=== PATIENT | female | born 1955 | race Caucasian/White ===

== ENCOUNTER 2022-06-20 08:36 | Inpatient (IN) ==
--- NOTE | 2022-05-28 14:57 | PAT Medication Instructions ---
Medication Instructions Date of Service May 28, 2022 Home Medications Medication Instructions Recorded ondansetron HCl 4 mg tablet 4 mg PO Q8H PRN nausea and 09/02/21 vomiting #15 tabs Medication List: acetaminophen 500 mg tablet 500 mg PO DIRECTED PRN Fever Or Pain albuterol sulfate 90 mcg/actuation breath activated powder inhaler (ProAir RespiClick) 2 puff inhalation QID PRN Wheezing aspirin 81 mg tablet,delayed release 81 mg PO QAM cetirizine 10 mg tablet (Zyrtec) 10 mg PO QAM esomeprazole magnesium 40 mg capsule,delayed release (Nexium) 40 mg PO QAM ibuprofen 200 mg tablet (Advil) 200 mg PO DIRECTED PRN Pain montelukast 10 mg tablet 10 mg PO QAM multivitamin 1 tab PO QAM rosuvastatin 20 mg tablet (Crestor) 20 mg PO QPM valsartan 80 mg tablet 80 mg PO QAM ondansetron HCl 4 mg tablet 4 mg PO Q8H PRN nausea and vomiting budesonide 160 mcg-glycopyr 9 mcg-formot 4.8 mcg/actuation HFA inhaler (Breztri Aerosphere) 2 inh inhalation BID gabapentin 300 mg capsule 300 mg PO BID ropinirole 0.5 mg tablet 0.5 mg PO QPM venlafaxine 150 mg tablet,extended release 24 hr 150 mg PO PM ASK your surgeon for instructions ibuprofen 200 mg tablet (Advil) 200 mg PO DIRECTED PRN Pain ASK your prescriber and surgeon aspirin 81 mg tablet,delayed release 81 mg PO QAM DO NOT take the morning of surgery multivitamin 1 tab PO QAM valsartan 80 mg tablet 80 mg PO QAM cetirizine 10 mg tablet (Zyrtec) 10 mg PO QAM Take morning of surgery With a small sip of water, OTHERWISE NOTHING TO EAT OR DRINK AFTER MIDNIGHT: acetaminophen 500 mg tablet 500 mg PO DIRECTED PRN Fever Or Pain (if needed) albuterol sulfate 90 mcg/actuation breath activated powder inhaler (ProAir RespiClick) 2 puff inhalation QID PRN Wheezing (use if needed; BRING TO HOSPITAL) esomeprazole magnesium 40 mg capsule,delayed release (Nexium) 40 mg PO QAM montelukast 10 mg tablet 10 mg PO QAM ondansetron HCl 4 mg tablet 4 mg PO Q8H PRN nausea and vomiting (if needed) budesonide 160 mcg-glycopyr 9 mcg-formot 4.8 mcg/actuation HFA inhaler (Breztri Aerosphere) 2 inh inhalation BID gabapentin 300 mg capsule 300 mg PO BID Take evening before surgery acetaminophen 500 mg tablet 500 mg PO DIRECTED PRN Fever Or Pain (if needed) albuterol sulfate 90 mcg/actuation breath activated powder inhaler (ProAir RespiClick) 2 puff inhalation QID PRN Wheezing rosuvastatin 20 mg tablet (Crestor) 20 mg PO QPM ropinirole 0.5 mg tablet 0.5 mg PO QPM venlafaxine 150 mg tablet,extended release 24 hr 150 mg PO PM ondansetron HCl 4 mg tablet 4 mg PO Q8H PRN nausea and vomiting (if needed) budesonide 160 mcg-glycopyr 9 mcg-formot 4.8 mcg/actuation HFA inhaler (Breztri Aerosphere) 2 inh inhalation BID gabapentin 300 mg capsule 300 mg PO BID Other Notes If you have any questions please call us at [phone] or [phone] or [phone] or [phone]
--- NOTE | 2022-06-06 11:18 | Anesthesiology Consultation ---
Date of Service June 06, 2022 Assessment & Plan (1) Encounter for pre-operative examination: Chart Review Chart Review: Acceptable Risk for Surgery (pending PCP clearance 06/07/22) and Patient seen in Pre Admission Testing -Awaiting PCP clearance 06/07/22 Per PAT appt on 06/06/22, patient denies any recent travel or large group activities. Pt is vaccinated for Covid. Will leave to surgeon's discretion if preop Covid testing needed. Educated on importance of using Covid precautions one week prior to surgery Teaching & Discussion Pre-Anesthesia Teaching/Discussion Notes: Instructed NPO after midnight before surgery,except medications with 15 cc of water. Medication instructions provided according to the PAT guidelines. History Surgery Operation Date: 06/20/22 07:45 Proposed Procedures p T11-L2 Decompression and Fusion, Spinal Cord Monitoring - Maged Gamino DO Height/Weight Height: 5 ft 3.5 in Weight: 97.7 kg Allergies Allergy/AdvReac Type Severity Reaction Status Date / Time tramadol Allergy Intermediate Itchiness Verified 05/28/22 08:32 Cephalosporins AdvReac Mild GI UPSET Verified 05/28/22 08:32 clavulanic acid AdvReac Mild UPSET Verified 05/28/22 08:32 STOMACH/NAUSEA Quinolones AdvReac Mild NAUSEA/UPSET Verified 05/28/22 08:32 STOMACH tetracycline AdvReac Mild Gastrointestinal Verified 05/28/22 08:32 Upset Medications Home Medications Medication Instructions Recorded Confirmed Last Taken acetaminophen 500 mg tablet 500 mg PO DIRECTED PRN Fever Or 12/13/17 05/28/22 Unknown Pain albuterol sulfate 90 mcg/actuation 2 puff inhalation QID PRN Wheezing 12/13/17 05/28/22 Unknown breath activated powder inhaler (ProAir RespiClick) aspirin 81 mg tablet,delayed 81 mg PO QAM 12/13/17 05/28/22 Unknown release cetirizine 10 mg tablet (Zyrtec) 10 mg PO QAM 12/13/17 05/28/22 Unknown esomeprazole magnesium 40 mg 40 mg PO QAM 12/13/17 05/28/22 Unknown capsule,delayed release (Nexium) ibuprofen 200 mg tablet (Advil) 200 mg PO DIRECTED PRN Pain 12/13/17 05/28/22 Unknown montelukast 10 mg tablet 10 mg PO QAM 12/13/17 05/28/22 Unknown multivitamin 1 tab PO QAM 12/13/17 05/28/22 Unknown rosuvastatin 20 mg tablet (Crestor) 20 mg PO QPM 12/13/17 05/28/22 Unknown valsartan 80 mg tablet 80 mg PO QAM 12/13/17 05/28/22 Unknown ondansetron HCl 4 mg tablet 4 mg PO Q8H PRN nausea and 09/02/21 05/28/22 Unknown vomiting #15 tabs budesonide 160 mcg-glycopyr 9 2 inh inhalation BID 05/28/22 05/28/22 Unknown mcg-formot 4.8 mcg/actuation HFA inhaler (Breztri Aerosphere) gabapentin 300 mg capsule 300 mg PO BID 05/28/22 05/28/22 Unknown ropinirole 0.5 mg tablet 0.5 mg PO QPM 05/28/22 05/28/22 Unknown venlafaxine 150 mg tablet,extended 150 mg PO PM 05/28/22 05/28/22 Unknown release 24 hr Past Medical History Medical History Anxiety and depression Asthma Breathing stable Chronic back pain GERD (gastroesophageal reflux disease) Well controlled and stable Hiatal hernia History of COVID-19 05/2019- mild symptoms, resolved History of kidney stones Last episode Jan 2022 Hyperlipidemia Hypertension Restless leg syndrome Sleep apnea CPAP Vertigo Intermittent Exercise / Class Metabolic Activity II 4-5 Yardwork/Stairs/Walk up hill (one flight of stairs- no chest pain or SOB) Past Family History Family History Other No family history of adverse response to anesthesia Past Surgical History Surgical History History of bilateral tubal ligation History of cardiac cath x2, 5+ years ago - no stents History of carpal tunnel surgery of right wrist History of colonoscopy History of esophagogastroduodenoscopy (EGD) History of lithotripsy History of lumbar laminectomy History of lumbar spinal fusion x2 History of sinus surgery History of tooth extraction History of total right knee replacement (TKR) S/P cystoscopy with ureteral stent placement x2 Past Anesthesia History No Hx of Anesthesia Complications and No Family Hx of Anesthesia Complications History of PONV No Hx of PONV and No Hx of Motion Sickness Social History Smoking Status: Former smoker Do You Dip or Chew Tobacco: No Smoking End Date: quit 1994 Hx Alcohol Use: Yes alcohol intake frequency: holidays/special occasions only Hx Substance Use: No substance use type: does not use Review of Systems Patient denies chest pain, shortness of breath at rest, cough, wheezing, palpitations. No hx of seizures, stroke, [place]. No hx of blood clots or blood transfusions Physical Exam Vital Signs VITALS BP 158/92 P 86 TEMP 98.3 SP02 97% RESP 16 Constitutional no acute distress ENMT Mouth: no TMJ clicking Thyromental Distance: > or= 3.5 Finger Breadths (3.5) Mallampati Class: II Missing molars and side teeth Cap to top right front tooth Neck neck extension not limited Respiratory normal respiratory effort; no respiratory distress Auscultation: lungs clear to auscultation bilaterally; no wheezes Cardiovascular Rate/Rhythm: regular rate and regular rhythm Heart Sounds: no murmur Vessels: no carotid bruit Musculoskeletal Spine: no pain with cervical ROM Extremities: extremities normal to inspection Psychiatric Orientation: alert Lab Results Anesthesia Preop Results Results Anesthesia Widget: WBC 5.51 K/ul (4.8-10.8) 06/06/22 Hgb 12.7 g/dl (12.0-16.0) 06/06/22 Hct 39.8 % (37.0-47.0) 06/06/22 Plt 183 K/uL (130-400) 06/06/22 Na 142 mmol/L (136-145) 06/06/22 K 4.2 mmol/L (3.5-5.1) 06/06/22 Cl 106 mmol/L (98-107) 06/06/22 CO2 30 mmol/L (21-32) 06/06/22 BUN 19 mg/dl (6-23) 06/06/22 Creat 0.65 mg/dl (0.6-1.2) 06/06/22 Glucose Level 97 mg/dl (70-99(Fasting)) 06/06/22 PT 11.6 Seconds (9.0-12.0) 06/06/22 PTT 26.4 Seconds (21.0-31.0) 06/06/22 INR 1.1 (0.9-1.1) 06/06/22 Urine Color Yellow 06/06/22 Urine Appearance Clear (Clear) 06/06/22 Urine pH 6.5 (4.5-7.5) 06/06/22 Urine Specific Robbins 1.020 (1.000-1.030) 06/06/22 Urine Protein Negative (Negative) 06/06/22 Urine Glucose (UA) Negative (Negative) 06/06/22 Urine Ketones Negative (Negative) 06/06/22 Urine Blood Trace (Negative) H 06/06/22 Urine Nitrite Negative (Negative) 06/06/22 Urine Bilirubin Negative (Negative) 06/06/22 Urine Urobilinogen Negative (Negative) 06/06/22 Urine Leukocyte Esterase Trace (Negative) H 06/06/22 Urine WBC (Auto) >30 /hpf (0-5) H 06/06/22 Urine RBC (Auto) 5-10 /hpf (0-4) H 06/06/22 Urine Hyaline Casts (Auto) 1-5 /lpf (0-5) 06/06/22 Urine Epithelial Cells (Auto) 10-20 /lpf (0-5) H 06/06/22 Urine Bacteria (Auto) 3+ (Negative) H 06/06/22 Blood Type A Positive 06/06/22 Antibody Screen NEGATIVE 06/06/22 Testing Laboratory Results L/m with surgeon's office informed of abnormal UA - will leave to surgeon's discretion on how to proceed Electrocardiogram Date: 06/06/22 NSR with sinus arrhythmia at 87bpm Normal EKG per cardio Chest X-Ray Date: 06/06/22 Findings: + NAD Stress Test Date: 11/12/18 No evidence of myocardial ischemia or infarction. EF 63% LV wall motion normal COVID-19 Risk Screen Screening Information COVID-19 Screen Date: 06/06/22 Exposure 21 Days Family/Household +COVID Last 21 Days: No Exposure 10 Days Any COVID Exposure Last 10 Days: No Symptoms Last 10 Days Experienced COVID Sx Last 10 Days: No + COVID 0-90 Days COVID + in Last 0-90 Days: No Risk Plan COVID Risk Plan: No Risk Identified Patient Education COVID Preop Screening Education Complete: Yes
[~2022-06-20 08:36] MED LIST: ACETAMINOPHEN 500 MG TAB PO SCH; CLINDAMYCIN/D5W 900 MG/50 ML BAG IV SCH; CeleBREX 200 MG CAP PO SCH; LR 15ML/HR IV SCH
[2022-06-20] MEDS ORDERED: MIDAZOLAM HCL 1 MG/ML 2ML VIAL ONE (09:05)
[2022-06-20] MEDS ORDERED: fentaNYL citrate PF 100 MCG/2 ML VIAL ONE ×2 (09:05→11:58)
[2022-06-20] MEDS ORDERED: LIDOCAINE 2% MPF LOCAL 5 ML VIAL ONE (09:05)
[2022-06-20] MEDS ORDERED: PROPOFOL IV EMULSION 10 MG/ML 20 ML VIAL IV ONE ×2 (09:05→11:57)
[2022-06-20] MEDS ORDERED: DEXAMETHASONE SOD INJ 4 MG/ML VIAL ONE (09:05)
[2022-06-20] MEDS ORDERED: ROCURONIUM BROMIDE 10 MG/ML 5 ML VIAL IV ONE (09:05)
--- NOTE | 2022-06-20 09:41 | History & Physical Bridge Note ---
Date of Service June 20, 2022 History & Physical Bridge Note I have examined the patient, reviewed the History & Physical and in the interval since the performance of the History & Physical I have noted the following changes of clinical significance: no changes noted
--- NOTE | 2022-06-20 09:42 | History & Physical Report ---
Date of Service June 20, 2022 Assessment & Plan (1) Neurogenic claudication due to lumbar spinal stenosis: Plan: T12-L2 decompression and fusion History of Present Illness Chief Complaint: Back and bilateral leg pain Primary Care Provider: Андрей Donnelly This is a 59-year-old female who presents with chronic persistent back and bilateral leg pain after failing course of nonoperative care she is here for surgical invention. Allergies Allergy/AdvReac Type Severity Reaction Status Date / Time tramadol Allergy Intermediate Itchiness Verified 06/20/22 08:58 Cephalosporins AdvReac Mild GI UPSET Verified 06/20/22 08:58 clavulanic acid AdvReac Mild UPSET Verified 06/20/22 08:58 STOMACH/NAUSEA Quinolones AdvReac Mild NAUSEA/UPSET Verified 06/20/22 08:58 STOMACH tetracycline AdvReac Mild Gastrointestinal Verified 06/20/22 08:58 Upset Home Medications Medication Instructions Recorded Confirmed Type acetaminophen 500 mg tablet 500 mg PO DIRECTED PRN Fever Or 12/13/17 06/20/22 History Pain albuterol sulfate 90 mcg/actuation 2 puff inhalation QID PRN Wheezing 12/13/17 06/20/22 History breath activated powder inhaler (ProAir RespiClick) aspirin 81 mg tablet,delayed 81 mg PO QAM 12/13/17 06/20/22 History release cetirizine 10 mg tablet (Zyrtec) 10 mg PO QAM 12/13/17 06/20/22 History esomeprazole magnesium 40 mg 40 mg PO QAM 12/13/17 06/20/22 History capsule,delayed release (Nexium) ibuprofen 200 mg tablet (Advil) 200 mg PO DIRECTED PRN Pain 12/13/17 06/20/22 History montelukast 10 mg tablet 10 mg PO QAM 12/13/17 06/20/22 History multivitamin 1 tab PO QAM 12/13/17 06/20/22 History rosuvastatin 20 mg tablet (Crestor) 20 mg PO QPM 12/13/17 06/20/22 History valsartan 80 mg tablet 80 mg PO QAM 12/13/17 06/20/22 History ondansetron HCl 4 mg tablet 4 mg PO Q8H PRN nausea and 09/02/21 06/20/22 Rx vomiting #15 tabs budesonide 160 mcg-glycopyr 9 2 inh inhalation BID 05/28/22 06/20/22 History mcg-formot 4.8 mcg/actuation HFA inhaler (Breztri Aerosphere) gabapentin 300 mg capsule 300 mg PO BID 05/28/22 06/20/22 History ropinirole 0.5 mg tablet 0.5 mg PO QPM 05/28/22 06/20/22 History venlafaxine 150 mg tablet,extended 150 mg PO PM 05/28/22 06/20/22 History release 24 hr Past Med/Surg History Medical History (Updated 06/20/22 @ 09:42 by Maged Gamino, ) Anxiety and depression Asthma Breathing stable Ty esophagus Per PCP records Chronic back pain COPD (chronic obstructive pulmonary disease) Per PCP records GERD (gastroesophageal reflux disease) Well controlled and stable Hiatal hernia History of COVID-19 05/2019- mild symptoms, resolved History of kidney stones Last episode Jan 2022 Hyperlipidemia Hypertension Restless leg syndrome Sleep apnea CPAP Vertigo Intermittent Surgical History History of bilateral tubal ligation History of cardiac cath x2, 5+ years ago - no stents History of carpal tunnel surgery of right wrist History of colonoscopy History of esophagogastroduodenoscopy (EGD) History of lithotripsy History of lumbar laminectomy History of lumbar spinal fusion x2 History of sinus surgery History of tooth extraction History of total right knee replacement (TKR) S/P cystoscopy with ureteral stent placement x2 Family History Other No family history of adverse response to anesthesia Social History Smoking Status: Former smoker Tobacco Type: Cigarettes Smoking End Date: quit 1994; Second Hand Exposure: No; Do You Dip or Chew Tobacco: No; Tobacco Cessation Education Requested by Patient: No Hx Alcohol Use: Yes Hx Substance Use: No Preferred Language: Congolese Communication Ability: Effective Visual Impairment: No Limitations Hearing Ability: Normal Media Consultant Required: No Beliefs That Will Affect Care: None Current Living Situation: Spouse and Parent Current Living Situation Comment: Lives with and mother Other Information That Helps Us Care for You: No Feels Safe at Home: Yes Safety Concerns: Feels Safe At This Time Assistive Devices: CPAP, Denture - Upper, Denture - Lower and Glasses Assistive Devices Comment: partial upper/lower denture Physical Exam Physical Exam: Patient is alert and oriented Heart regular rhythm Lungs clear Results & Data Results & Data Vital Signs (Past 12 Hours) Vital Signs Temp Pulse Resp BP Pulse Ox O2 Del Method 06/20/22 09:16 88 18 177/102 H 95 Room Air 06/20/22 09:13 36.9 C 89 20 143/109 H 96 Room Air
[2022-06-20] MEDS ORDERED: BUPIVACAINE/EPINEPHRINE 0.25% 1:200,000 30 ML VIAL ONE (09:48)
[2022-06-20] MEDS ORDERED: ceFAZolin 330 MG/ML 1 GM VIAL ONE (09:48)
[2022-06-20] MEDS ORDERED: ONDANSETRON INJ 2 MG/ML 2 ML VIAL ONE (12:12)
[2022-06-20] MEDS ORDERED: SUGAMMADEX SODIUM 200 MG/2 ML VIAL IV ONE (12:14)
--- NOTE | 2022-06-20 12:19 | Operative Report ---
Post Operative Report Pre & Post Diagnosis Operation Date: 06/20/22 10:05 Pre-Op Diagnosis: Lumbar spinal stenosis with neurogenic claudication Morbid obesity Post-Op Diagnosis: Same I identified the patient and participated in the time-out.: Yes Procedure Operation Date: 06/20/22 10:05 Actual Procedures #1 lumbar decompression bilateral medial facetectomies and foraminotomies T12-L1 L1-L2. #2 posterior spinal fusion T11-L2. #3 placement posterior instrumentation T11-L1 with connectors to the L2-L3 olive. #4 interbody fusion L1-L2. #5 placement of Spira 8 x 22 mm at L1-L2. #6 placement locally harvested morselized autograft in the posterior gutters. #7 placement of I factor in the interbody space and infuse collagen sponge, and master graft in the posterior lateral gutters. Surgeon Maged Gamino, DO [employer] Shabnam Anders Estimated Blood Loss 350 Findings See Below The patient is 5 foot 3 weighing over 97 kg with a BMI in excess of 37. Patient's body habitus did contribute to significant technical difficulty required deeper retractors and longer instruments in order to perform her procedure. This at least 50% increased operative time. Specimens None Indications This is a 59-year-old female who presents above-mentioned diagnosis after failing course of nonoperative care is here for surgical invention. Description of Procedure Patient was met with identified informed consent obtained. Patient was then taken to the operative suite underwent a patient placed in a prone position on the [place] table top Dylon frame. All bony prominences well-padded eyes inspected to ensure no external pressure placed upon the. This point the lumbar spine was prepped and draped in normal sterile fashion. Sharp dissection with the assistance of Bovie cautery was then performed down to and exposing the lamina and transverse processes of T11-T12 L1 and the instrumentation between L2 and L3. Then performed a complete laminectomy of L1 partial laminectomy of T12 including bilateral medial facetectomies and foraminotomies addressing severe spinal stenosis. Pedicle screws were then placed in T11-T12 and L1 and by way of transforaminal approach on the left complete discectomy of L1-L2 was performed endplates curetted to subcortical bleeding bone and 8 x 22 mm Spira cage filled I factor tapped in position. Proper size rods were then contoured and locked in place bilaterally with the use of connectors between L2 and L3. Transverse processes of T11 T12-L1 and L2 were then burred to subcortical bleeding bone. Infuse collagen sponge from mass graft locally harvested morselized autograft was then placed in the posterior gutters. 15 round LUIS drain inserted. The incision was then closed with 1 Vicryl the fascia 2-0 Vicryl subcutaneously and 4 Monocryl for final skin closure. Steri-Strips sterile dressing placed. Patient awakened and taken to PACU in stable condition. Please note spinal cord monitoring visualized at the procedure no changes noted. Lastly Shabnam Anders was present at the entire surgeon while the patient positioning complex portions of the surgery and final skin closure. I attest to the content of the Intraoperative Record and any orders documented therein. Any exceptions are noted below.
[2022-06-20] MEDS ORDERED: ePHEDrine sulfate 50 MG/ML AMP IV PRN (13:09)
[2022-06-20] MEDS ORDERED: LABETALOL HCL IV 5 MG/ML 20ML IV PRN (13:09)
[2022-06-20] MEDS ORDERED: ONDANSETRON INJ 2 MG/ML 2 ML VIAL IV PRN ×2 (13:09→14:14)
[2022-06-20] MEDS ORDERED: PROMETHAZINE HCL 12.5 MG in SODIUM CHLORIDE 0.9% 50 ML IV PRN ×2 (13:09→14:14)
[2022-06-20] MEDS ORDERED: ATROPINE SULFATE 0.1 MG/ML 10ML SYR IV PRN (13:09)
[2022-06-20] MEDS ORDERED: LABETALOL HCL IV 5 MG/ML 20ML IV ONE (13:13)
[2022-06-20] MEDS ORDERED: HYDROmorphone INJ 1 MG/ML SYRINGE ONE (13:13)
[2022-06-20] MEDS: HYDROmorphone INJ 2 MG/ML SYR/VIAL IV PRN ×2 (13:14→13:26)
--- NOTE | 2022-06-20 13:39 | Fluoroscopy Report ---
FL lumbar spine 2-3V CLINICAL HISTORY: T11-L2 DECOMP/FUSION COMPARISON STUDY: CT abdomen and pelvis 09/01/2021 FLUOROSCOPY TIME: 29 seconds FLUOROSCOPY IMAGES: 2 EXPOSURE DOSE: 25.20 mGy FINDINGS: Thoracolumbar posterior interbody olive and screw fusion with discectomy changes. Exact numbe ring of the fused segments is not definitive based on magnification. The visualized hardware appears intact. No unexpected opaque foreign bodies are identified. Images were submitted following completio n of the surgery. IMPRESSION: Fluoroscopic assistance as above. ACT 112: Negative or not required by law. Electronically signed by: Pierre Peoples M.D. 06/20/2022 1:38 PM
[2022-06-20] MEDS ORDERED: ACETAMINOPHEN 1,000 MG/100 ML VIAL IV PRN (14:14)
[2022-06-20] MEDS ORDERED: traMADol HCL 50 MG TABLET PO PRN (14:14)
[2022-06-20] MEDS ORDERED: DO NOT ADMINISTER PNEUMOCOCCAL VACCINE PRN (14:14)
[2022-06-20] MEDS ORDERED: MAGNESIUM HYDROXIDE SUSP 30 ML UDC PO PRN (14:14)
[2022-06-20] MEDS ORDERED: ACETAMINOPHEN 500 MG TAB PO PRN (14:14)
[2022-06-20] MEDS ORDERED: hydrOXYzine HCl 25 MG TAB PO PRN (14:14)
[2022-06-20] MEDS ORDERED: LORazepam 0.5 MG TAB PO PRN (14:14)
[2022-06-20] MEDS ORDERED: ONDANSETRON 4 MG OD TAB PO PRN (14:14)
[2022-06-20] MEDS ORDERED: METOCLOPRAMIDE HCL INJ 5 MG/ML 2 ML VIAL IV PRN (14:14)
[2022-06-20] MEDS ORDERED: LORazepam 2 MG/1 ML VIAL IV PRN (14:14)
[2022-06-20] MEDS ORDERED: ALUMINUM/MAGNESIUM SUSP 30 ML UDC PO PRN (14:14)
[2022-06-20] MEDS ORDERED: HYDROmorphone INJ 0.5 MG/0.5 ML SYR IV PRN (14:14)
[2022-06-20] MEDS ORDERED: bisacodyL 10 MG SUPP PR PRN (14:14)
[2022-06-20] MEDS ORDERED: SOD PHOSPHATE/SOD BIPHOSPHATE ENEMA 132 ML BTL PR PRN (14:14)
[2022-06-20] MEDS ORDERED: FAMOTIDINE 20 MG TAB PO PRN (14:14)
[2022-06-20] MEDS ORDERED: diphenhydrAMINE Capsule 25 MG CAP PO PRN (14:14)
[2022-06-20] MEDS ORDERED: NALOXONE HCL 0.4 MG/1 ML VIAL/CARP IV PRN (14:14)
[2022-06-20] MEDS ORDERED: DO NOT ADMINISTER FLU VACCINE PRN (14:14)
--- NOTE | 2022-06-20 14:28 | Anesthesiology Progress Note ---
Date of Service June 20, 2022 Anesthesia Post Procedure Vital Signs Vital Signs: Temp Pulse Pulse Resp BP Pulse Ox O2 Del Method 06/20/22 14:11 36.5 C 17 144/88 H 95 Room Air 06/20/22 13:50 78 15 141/83 H 97 Nasal Cannula 06/20/22 13:40 36.5 C 79 15 149/80 H 99 Nasal Cannula 06/20/22 13:30 76 19 129/92 100 Nasal Cannula 06/20/22 13:20 75 13 135/87 96 Nasal Cannula 06/20/22 13:10 85 14 159/105 H 100 Nasal Cannula 06/20/22 13:00 86 15 147/105 H 99 Nasal Cannula 06/20/22 12:50 94 H 20 152/102 H 98 Nasal Cannula 06/20/22 12:41 36.2 C L 87 12 153/102 H 96 Nasal Cannula 06/20/22 09:16 88 18 177/102 H 95 Room Air 06/20/22 09:13 36.9 C 89 20 143/109 H 96 Room Air O2 Flow Rate 06/20/22 14:11 06/20/22 13:50 2 06/20/22 13:40 2 06/20/22 13:30 2 06/20/22 13:20 3 06/20/22 13:10 3 06/20/22 13:00 3 06/20/22 12:50 3 06/20/22 12:41 3 06/20/22 09:16 06/20/22 09:13 Pain Intensity Back: Pain Intensity: 4 Transfer of Care Handoff Completed per policy Notes Mental Status: alert / awake / arousable and participated in evaluation Nausea / Vomiting: adequately controlled Pain: adequately controlled Airway Patency, RR, SpO2: stable & adequate BP & HR: stable & adequate Hydration State: stable & adequate Anesthetic Complications: no major complications apparent and Pt Satisfied with anesthetic care
[2022-06-20] MEDS: SODIUM CHLORIDE 0.9% 1000ML 1,000 ML IV SCH ×2 (14:52→21:11)
[2022-06-20] MEDS: oxyCODONE HCL IR 5 MG TAB (IMMEDIATE RELEASE) PO PRN (14:59)
[2022-06-20] MEDS: CLINDAMYCIN/D5W 600 MG/50 ML BAG IV SCH (18:00)
--- NOTE | 2022-06-20 19:23 | Consultation ---
Date of Consultation June 20, 2022 Assessment & Plan (1) S/P spinal surgery: (2) Neurogenic claudication due to lumbar spinal stenosis: Post op day# 0 S/P T11-L2 decompression and fusion by Dr Hanny MELO #350 mL pain management per ortho wound management per ortho PT/OT as appropriate DVT prophylaxis per ortho incentive spirometry monitor H&H for acute blood loss anemia; preop Hgb: 12.7 on 06/06/2022 per chart review (3) Asthma: No signs exacerbation Continue home inhalers, Singulair, albuterol as needed (4) Hypertension: Continue valsartan (5) Hyperlipidemia: Continue rosuvastatin (6) GERD (gastroesophageal reflux disease): Patient did not take PPI today and reports some indigestion. Will dose PPI tonight as well as Pepcid Continue PPI (7) Sleep apnea: CPAP at bedtime (8) Restless leg syndrome: Continue ropinirole (9) Anxiety and depression: Continue venlafaxine DVT Prophylaxis SCDs per ortho Disposition per primary service Follows with Dr Elizabeth Donnelly [facility] for routine care Pt was seen and care coordinated with Dr Duarte. See addendum I spent a total of 45 minutes reviewing notes, outpatient records, labs, medication, coordinating, documenting and providing care for this patient excluding time spent in the performance of separately billed services. Thank you for this consultation. We will follow the patient with you during their hospital stay. You [facility]10 via [facility] Supervising Physician Co-Signing Physician Notes Patient seen and examined. Chart reviewed. Case discussed with LITA. Agree with above History of Present Illness Requesting Physician: Dr. Gamino Reason for Consultation: Postop medical management Attending Physician: Maged Gamino, History of Present Illness Patient is 67-year-old female with PMH asthma, COPD, HTN, dyslipidemia, anxiety, depression, RLS, GERD seen in medical consultation s/p T12-L2 decompression and fusion today by Dr. Gamino. Postop patient reports some back pain. Preop she reports had left leg pain. Patient denies any current left leg pain. Reports chronic paresthesias bilateral feet. Patient states did not have any of her medications today including her Nexium. Currently she reports some heartburn and nausea. Denies any vomiting. Denies fever/chills, diaphoresis, diarrhea, constipation, KAMARA, dizziness, CP, SOB, cough, sore throat, abdominal pain, extremity weakness, extremity edema, rashes, urinary symptoms. Allergies Allergy/AdvReac Type Severity Reaction Status Date / Time tramadol Allergy Intermediate Itchiness Verified 06/20/22 08:58 Cephalosporins AdvReac Mild GI UPSET Verified 06/20/22 08:58 clavulanic acid AdvReac Mild UPSET Verified 06/20/22 08:58 STOMACH/NAUSEA Quinolones AdvReac Mild NAUSEA/UPSET Verified 06/20/22 08:58 STOMACH tetracycline AdvReac Mild Gastrointestinal Verified 06/20/22 08:58 Upset Home Medications Medication Instructions Recorded Confirmed Type acetaminophen 500 mg tablet 500 mg PO DIRECTED PRN Fever Or 12/13/17 06/20/22 History Pain albuterol sulfate 90 mcg/actuation 2 puff inhalation QID PRN Wheezing 12/13/17 06/20/22 History breath activated powder inhaler (ProAir RespiClick) aspirin 81 mg tablet,delayed 81 mg PO QAM 12/13/17 06/20/22 History release cetirizine 10 mg tablet (Zyrtec) 10 mg PO QAM 12/13/17 06/20/22 History esomeprazole magnesium 40 mg 40 mg PO QAM 12/13/17 06/20/22 History capsule,delayed release (Nexium) ibuprofen 200 mg tablet (Advil) 200 mg PO DIRECTED PRN Pain 12/13/17 06/20/22 History montelukast 10 mg tablet 10 mg PO QAM 12/13/17 06/20/22 History multivitamin 1 tab PO QAM 12/13/17 06/20/22 History rosuvastatin 20 mg tablet (Crestor) 20 mg PO QPM 12/13/17 06/20/22 History valsartan 80 mg tablet 80 mg PO QAM 12/13/17 06/20/22 History ondansetron HCl 4 mg tablet 4 mg PO Q8H PRN nausea and 09/02/21 06/20/22 Rx vomiting #15 tabs budesonide 160 mcg-glycopyr 9 2 inh inhalation BID 05/28/22 06/20/22 History mcg-formot 4.8 mcg/actuation HFA inhaler (Breztri Aerosphere) gabapentin 300 mg capsule 300 mg PO BID 05/28/22 06/20/22 History ropinirole 0.5 mg tablet 0.5 mg PO QPM 05/28/22 06/20/22 History venlafaxine 150 mg tablet,extended 150 mg PO PM 05/28/22 06/20/22 History release 24 hr oxycodone 5 mg tablet 5 mg PO DAILY PRN pain #30 tabs 06/20/22 06/20/22 Rx tramadol 50 mg tablet 50 mg PO Q6H PRN pain, moderate 06/20/22 06/20/22 Rx #30 tabs Patient History Medical History (Updated 06/20/22 @ 20:18 by Rehana Dooley PA-C) Anxiety and depression Asthma Breathing stable Ty esophagus Per PCP records Chronic back pain COPD (chronic obstructive pulmonary disease) Per PCP records GERD (gastroesophageal reflux disease) Well controlled and stable Hiatal hernia History of COVID-19 05/2019- mild symptoms, resolved History of kidney stones Last episode Jan 2022 Hyperlipidemia Hypertension Restless leg syndrome Sleep apnea CPAP Vertigo Intermittent Surgical History (Updated 06/20/22 @ 20:12 by Rehana Dooley PA-C) History of bilateral tubal ligation History of cardiac cath x2, 5+ years ago - no stents History of carpal tunnel surgery of right wrist History of colonoscopy History of esophagogastroduodenoscopy (EGD) History of lithotripsy History of lumbar laminectomy History of lumbar spinal fusion x2 History of sinus surgery History of tooth extraction History of total right knee replacement (TKR) S/P cystoscopy with ureteral stent placement x2 Family History Other No family history of adverse response to anesthesia Social History Smoking Status: Former smoker Tobacco Type: Cigarettes Smoking End Date: quit 1994; Second Hand Exposure: No; Do You Dip or Chew Tobacco: No; Tobacco Cessation Education Requested by Patient: No Hx Alcohol Use: Yes Hx Substance Use: No Preferred Language: American Communication Ability: Effective Visual Impairment: No Limitations Hearing Ability: Normal Micro Computer Data Processor Required: No Beliefs That Will Affect Care: None Current Living Situation: Spouse and Parent Current Living Situation Comment: Lives with and mother Other Information That Helps Us Care for You: No Feels Safe at Home: Yes Safety Concerns: Feels Safe At This Time Assistive Devices: CPAP, Denture - Upper, Denture - Lower and Glasses Assistive Devices Comment: partial upper/lower denture Review of Systems Review of Systems: All systems reviewed & are unremarkable except as noted in HPI & below Physical Exam Physical Exam: General: no distress, obese Head: normocephalic, atraumatic Eyes: conjunctiva non-injected, anicteric ENT: normal inspection external ears, nose, mucous membranes moist Neck: supple, trachea midline Lungs: clear, no respiratory distress, no wheezing/rhonchi/rales CV: RRR, no murmur, no pretibial edema Abd: normal BS, soft, non-tender Back: surgical dressing in place, LUIS drain in place with serosanguineous drainage Ext: no cyanosis, no calf tenderness, bilateral pedal pulse and pushes intact, sensation to light touch intact bilaterally Neuro: A&O x 3, no focal deficits noted, normal affect Skin: warm, dry Results & Data Vital Signs (Past 12 Hours) Vital Signs Temp Pulse Pulse Resp BP Pulse Ox O2 Del Method 06/20/22 17:10 36.6 C 79 16 123/79 97 Nasal Cannula 06/20/22 16:10 36.4 C L 78 16 116/78 98 Nasal Cannula 06/20/22 15:10 36.4 C L 78 16 121/80 97 Nasal Cannula 06/20/22 14:39 36.6 C 81 17 125/82 96 Nasal Cannula 06/20/22 14:31 Nasal Cannula 06/20/22 14:11 36.5 C 17 144/88 H 95 Room Air 06/20/22 13:50 78 15 141/83 H 97 Nasal Cannula 06/20/22 13:40 36.5 C 79 15 149/80 H 99 Nasal Cannula 06/20/22 13:30 76 19 129/92 100 Nasal Cannula 06/20/22 13:20 75 13 135/87 96 Nasal Cannula 06/20/22 13:10 85 14 159/105 H 100 Nasal Cannula 06/20/22 13:00 86 15 147/105 H 99 Nasal Cannula 06/20/22 12:50 94 H 20 152/102 H 98 Nasal Cannula 06/20/22 12:41 36.2 C L 87 12 153/102 H 96 Nasal Cannula 06/20/22 09:16 88 18 177/102 H 95 Room Air 06/20/22 09:13 36.9 C 89 20 143/109 H 96 Room Air O2 Flow Rate 06/20/22 17:10 2 06/20/22 16:10 2 06/20/22 15:10 2 06/20/22 14:39 2 06/20/22 14:31 2 06/20/22 14:11 06/20/22 13:50 2 06/20/22 13:40 2 06/20/22 13:30 2 06/20/22 13:20 3 06/20/22 13:10 3 06/20/22 13:00 3 06/20/22 12:50 3 06/20/22 12:41 3 06/20/22 09:16 06/20/22 09:13
[2022-06-20] MEDS ORDERED: FAMOTIDINE 20 MG in SYRINGE 3 ML IV ONE (20:00)
[2022-06-20] MEDS ORDERED: PANTOprazole 40 MG TAB PO ONE (20:15)
[2022-06-20] MEDS ORDERED: NON-FORMULARY MEDICATION (Budesonide-Glycopyr-Formoterol [Breztri Aerosphere] 160-9-4.8 mc INH SCH (21:00)
[2022-06-20] MEDS: DOCUSATE SODIUM/SENNA 50/8.6MG TAB PO SCH (21:11)
[2022-06-20] MEDS: ROSUVASTATIN CALCIUM 20 MG TAB PO SCH (21:12)
[2022-06-20] MEDS: rOPINIRole HCL 0.25 MG TABLET PO SCH (21:13)
[2022-06-20] MEDS: VENLAFAXINE HCL XR 150 MG CAPXR PO SCH (21:13)
[2022-06-20] MEDS: GABAPENTIN 300 MG CAP PO SCH (21:13)
[2022-06-21] MEDS: CLINDAMYCIN/D5W 600 MG/50 ML BAG IV SCH (01:56)
[2022-06-21] MEDS: POLYETHYLENE (MIRALAX) 17 GM PACK PO SCH ×3 (06:09→16:56)
[2022-06-21] MEDS: oxyCODONE HCL IR 5 MG TAB (IMMEDIATE RELEASE) PO PRN ×3 (07:53→21:09)
[2022-06-21] MEDS: MONTELUKAST SODIUM 10 MG TABLET PO SCH (08:16)
[2022-06-21] MEDS: VALSARTAN 80 MG TAB PO SCH (08:16)
[2022-06-21] MEDS: dexAMETHasone 6 MG in SYRINGE 0 ML IV SCH (08:16)
[2022-06-21] MEDS: GABAPENTIN 300 MG CAP PO SCH ×2 (08:16→21:03)
[2022-06-21] MEDS: SULFAMETHOXAZOLE/TRIMETHOPRIM DS 800/160MG TAB PO SCH ×2 (08:16→21:04)
[2022-06-21] MEDS: ASPIRIN 81 MG ECTAB PO SCH (08:16)
[2022-06-21] MEDS: CETIRIZINE HCL 10 MG TABLET PO SCH (08:16)
[2022-06-21] MEDS: MULTIVITAMIN TAB PO SCH (08:16)
[2022-06-21] MEDS: UMECLIDINIUM/VILANTEROL 62.5/25MCG 7 PUFFS/INHALER INH SCH (08:17)
[2022-06-21] MEDS: FLUTICASONE FUROATE 200MCG 14 PUFFS/INHALER INH SCH (08:18)
[2022-06-21] MEDS: PANTOprazole 40 MG TAB PO SCH (08:20)
[2022-06-21 08:36] LABS: Basophils # (auto) 0.02 K/uL (0-0.2); Basophils % (auto) 0.2 %; Hematocrit (blood only) 33.8 % (37.0-47.0); Hemoglobin 10.9 g/dl (12.0-16.0); Immature Granulocytes # (auto) 0.03 K/uL (0.01-0.20); Immature Granulocytes % (auto) 0.3 %; Lymphocytes % (auto) 12.5 %; Mean Corpuscular Hemoglobin 27.9 pg (25.0-34.0); Mean Corpuscular Hgb Conc 32.2 g/dL (32.0-36.0); Mean Corpuscular Volume 86.7 fL (80.0-100.0); Mean Platelet Volume 11.1 fL (9.4-12.4); Monocytes # (auto) 0.69 K/uL (0.11-0.59); Monocytes % (auto) 7.2 %; Neutrophils # (auto) 7.68 K/uL (1.40-6.50); Neutrophils % (auto) 79.8 %; Platelet Count 214 K/uL (130-400); RDW Coefficient of Variation 14.5 % (11.5-14.5); RDW Standard Deviation 46.3 fL (36.4-46.3); White Blood Count 9.62 K/ul (4.8-10.8)
[2022-06-21 08:49] LABS: BUN Creatinine Ratio 32.4 (10-20); Calcium 8.8 mg/dl (8.6-10.3); Creatinine Clr Calc Pharmacy 88.8 ml/min; Est GFR (African American) 104.2 ml/min; Est GFR (Non-African American) 89.9 ml/min; Potassium 4.5 mmol/L (3.5-5.1)
--- NOTE | 2022-06-21 09:51 | Orthopedic Progress Note ---
Date of Service June 21, 2022 Assessment & Plan (1) Neurogenic claudication due to lumbar spinal stenosis: Plan: At this time initiate physical therapy monitor LUIS output hopefully discharge home in the next few days. Admission and Anticipated Discharge Date Admission Date: June 20, 2022 Subjective Back pain controlled leg pain improved Physical Exam Physical Exam: Patient is sitting up at the bedside. Is good strength testing. Results & Data Vital Signs (Past 12 Hours) Vital Signs Temp Pulse Resp BP Pulse Ox O2 Del Method 06/21/22 08:07 36.7 C 84 16 133/77 94 Room Air 06/21/22 04:00 36.6 C 85 18 133/79 93 CPAP 06/21/22 00:06 36.6 C 85 18 135/75 91 CPAP
--- NOTE | 2022-06-21 14:53 | Hospitalist Progress Note ---
Date of Service June 21, 2022 Assessment & Plan (1) S/P spinal surgery: (2) Neurogenic claudication due to lumbar spinal stenosis: Plan: S/P T11-L2 decompression and fusion by Dr Gamino Post op day# 1 EBL #350 mL Pain management per ortho Post op anemia likely due to blood loss and dilutional from IVF Preop Hgb: 12.7 on 06/06/2022 per chart review Hb is 10.9 today. Recheck in AM PT/OT (3) Asthma: Plan: No signs exacerbation Continue home inhalers, Singulair, albuterol as needed (4) Hypertension: Plan: Continue valsartan (5) Hyperlipidemia: Plan: Continue rosuvastatin (6) GERD (gastroesophageal reflux disease): Plan: Continue PPI (7) Sleep apnea: Plan: CPAP at bedtime (8) Restless leg syndrome: Plan: Continue ropinirole (9) Anxiety and depression: Plan: Continue venlafaxine Preop urine culture grew Klebsiella Currently on bactrim DVT Prophylaxis SCDs per ortho Disposition per primary service Follows with Dr Elizabeth Currie for routine care I spent a total of 40 minutes coordinating, documenting and providing care for this patient excluding time spent in performance of separately billed services Admission and Anticipated Discharge Date Admission Date: June 20, 2022 Subjective Patient seen and examined Reports surgical site pain is well controlled Denied any other symptoms at this time Physical Exam Constitutional: + well hydrated and + obese; no acute distress Eyes: PERRL, conjunctivae normal, anicteric sclerae ENMT: external ear and nose normal, oropharynx normal Respiratory: normal respiratory effort, lungs clear to auscultation Cardiovascular: Rate/Rhythm: regular rate and regular rhythm S1 S2 Gastrointestinal (Abdomen): normal bowel sounds, soft, nontender, no hepatosplenomegaly Musculoskeletal: no cyanosis or clubbing, extremities motor strength 5/5 Clean dressing over surgical site Neurologic: PERRL, EOMI, accommodation nl, no face palsy, no dysarthria Psychiatric: A+Ox3, euthymic affect Results & Data Results & Data Vital Signs (Past 12 Hours) Vital Signs Temp Pulse Resp BP Pulse Ox O2 Del Method 06/21/22 11:34 88 95 Room Air 06/21/22 11:30 36.6 C 94 H 16 105/67 93 Room Air 06/21/22 08:07 36.7 C 84 16 133/77 94 Room Air 06/21/22 04:00 36.6 C 85 18 133/79 93 CPAP Laboratory Results Abnormal lab results 06/21/22 06/21/22 Range/Units 07:58 07:58 RBC 3.90 L (4.20-5.40) M/uL Hgb 10.9 L (12.0-16.0) g/dl Hct 33.8 L (37.0-47.0) % Neut # (Auto) 7.68 H (1.40-6.50) K/uL Tift # (Auto) 0.69 H (0.11-0.59) K/uL BUN/Creatinine Ratio 32.4 H (10-20) Glucose 120 H (70-99(Fasting)) mg/dl
[2022-06-21] MEDS: DOCUSATE SODIUM/SENNA 50/8.6MG TAB PO SCH (21:03)
[2022-06-21] MEDS: rOPINIRole HCL 0.25 MG TABLET PO SCH (21:04)
[2022-06-21] MEDS: ROSUVASTATIN CALCIUM 20 MG TAB PO SCH (21:04)
[2022-06-21] MEDS: VENLAFAXINE HCL XR 150 MG CAPXR PO SCH (21:04)
[2022-06-22] MEDS: POLYETHYLENE (MIRALAX) 17 GM PACK PO SCH ×6 (02:58→23:47)
[2022-06-22] MEDS: oxyCODONE HCL IR 5 MG TAB (IMMEDIATE RELEASE) PO PRN ×3 (06:12→18:28)
[2022-06-22 08:21] LABS: Hemoglobin 10.3 g/dl (12.0-16.0); Mean Corpuscular Hemoglobin 28.2 pg (25.0-34.0); Mean Corpuscular Hgb Conc 32.2 g/dL (32.0-36.0); Mean Corpuscular Volume 87.7 fL (80.0-100.0); Mean Platelet Volume 11.6 fL (9.4-12.4); Platelet Count 187 K/uL (130-400); RDW Coefficient of Variation 14.6 % (11.5-14.5); RDW Standard Deviation 47.3 fL (36.4-46.3); Red Blood Count 3.65 M/uL (4.20-5.40); White Blood Count 8.42 K/ul (4.8-10.8)
--- NOTE | 2022-06-22 08:27 | Orthopedic Progress Note ---
Date of Service June 22, 2022 Assessment & Plan (1) Neurogenic claudication due to lumbar spinal stenosis: Plan: Mya is postoperative day 2 status post T11-L2 decompression and instrumented fusion. She is doing well. We will continue with physical therapy today. Maintain LUIS drain. Continue with aggressive bowel regimen. DVT prophylaxis is in the form of teds and SCDs. Anticipate discharge home tomorrow. Admission and Anticipated Discharge Date Admission Date: June 20, 2022 Subjective Mya is postoperative day 2 status post T11-L2 decompression and instrumented fusion. She is doing well. Leg symptoms greatly improved. Back pain is bit increased today but controlled. LUIS drain output last shift was 40 cc. Yesterday in physical therapy she was ambling roughly a total of 165 feet. She is planning to go home on discharge.she is passing flatus. No bowel movement. Review of Systems Review of Systems: All systems reviewed & are unremarkable except as noted in HPI & below Physical Exam Physical Exam: She is resting comfortably but arouses easily Alert and oriented x3 Lumbar dressing is clean dry and intact with functioning LUIS drain Calf soft nontender bilateral lower extremity Strength is intact bilateral lower extremities DAVID hose and SCDs intact bilateral lower extremities Results & Data Vital Signs (Past 12 Hours) Vital Signs Temp Pulse Pulse Resp BP BP Pulse Ox 06/22/22 07:38 36.3 C L 80 16 116/73 95 06/21/22 22:00 06/21/22 20:55 36.8 C 80 18 133/71 94 O2 Del Method 06/22/22 07:38 Room Air 06/21/22 22:00 Room Air, Nasal Cannula 06/21/22 20:55 Room Air
[2022-06-22 08:37] LABS: BUN Creatinine Ratio 35.7 (10-20); Calcium 8.5 mg/dl (8.6-10.3); Creatinine Clr Calc Pharmacy 86.2 ml/min; Est GFR (African American) 103.2 ml/min; Potassium 3.9 mmol/L (3.5-5.1)
[2022-06-22] MEDS: MULTIVITAMIN TAB PO SCH (08:48)
[2022-06-22] MEDS: ASPIRIN 81 MG ECTAB PO SCH (08:48)
[2022-06-22] MEDS: GABAPENTIN 300 MG CAP PO SCH ×2 (08:48→21:15)
[2022-06-22] MEDS: SULFAMETHOXAZOLE/TRIMETHOPRIM DS 800/160MG TAB PO SCH ×2 (08:49→21:16)
[2022-06-22] MEDS: MONTELUKAST SODIUM 10 MG TABLET PO SCH (08:49)
[2022-06-22] MEDS: VALSARTAN 80 MG TAB PO SCH (08:49)
[2022-06-22] MEDS: PANTOprazole 40 MG TAB PO SCH (08:49)
[2022-06-22] MEDS: CETIRIZINE HCL 10 MG TABLET PO SCH (08:49)
[2022-06-22] MEDS: dexAMETHasone 6 MG in SYRINGE 0 ML IV SCH (08:50)
[2022-06-22] MEDS: UMECLIDINIUM/VILANTEROL 62.5/25MCG 7 PUFFS/INHALER INH SCH (08:50)
[2022-06-22] MEDS: FLUTICASONE FUROATE 200MCG 14 PUFFS/INHALER INH SCH (08:50)
--- NOTE | 2022-06-22 10:58 | Hospitalist Progress Note ---
Date of Service June 22, 2022 Assessment & Plan (1) S/P spinal surgery: (2) Neurogenic claudication due to lumbar spinal stenosis: Plan: S/P T11-L2 decompression and fusion by Dr Gamino Post op day# 2 EBL #350 mL Pain management per ortho Post op anemia likely due to acute blood loss and dilutional from IVF Preop Hgb: 12.7 on 06/06/2022 per chart review Hb is 10.3 today. Stable in 10s PT/OT (3) Asthma: Plan: No signs exacerbation Continue home inhalers, Singulair, albuterol as needed (4) Hypertension: Plan: Continue valsartan (5) Hyperlipidemia: Plan: Continue rosuvastatin (6) GERD (gastroesophageal reflux disease): Plan: Continue PPI (7) Sleep apnea: Plan: CPAP at bedtime (8) Restless leg syndrome: Plan: Continue ropinirole (9) Anxiety and depression: Plan: Continue venlafaxine Preop urine culture grew Klebsiella Patient denied any urinary symptom. Hence asymptomatic bacteruria Currently on bactrim. Will complete treatment considering recent surgery DVT Prophylaxis SCDs per ortho Disposition per primary service Follows with Dr Elizabeth Donnelly [facility] for routine care I spent a total of 40 minutes coordinating, documenting and providing care for this patient excluding time spent in performance of separately billed services Admission and Anticipated Discharge Date Admission Date: June 20, 2022 Subjective Patient seen and examined Reports surgical site pain is well controlled Denied any other symptoms at this time Physical Exam Constitutional: + well hydrated and + obese; no acute distress Eyes: PERRL, conjunctivae normal, anicteric sclerae ENMT: external ear and nose normal, oropharynx normal Respiratory: normal respiratory effort, lungs clear to auscultation Cardiovascular: Rate/Rhythm: regular rate and regular rhythm S1 S2 Gastrointestinal (Abdomen): normal bowel sounds, soft, nontender, no hepatosplenomegaly Musculoskeletal: no cyanosis or clubbing, extremities motor strength 5/5 Clean dressing over surgical site Neurologic: PERRL, EOMI, accommodation nl, no face palsy, no dysarthria Psychiatric: A+Ox3, euthymic affect Results & Data Results & Data Vital Signs (Past 12 Hours) Vital Signs Temp Pulse Resp BP Pulse Ox O2 Del Method 06/22/22 07:38 36.3 C L 80 16 116/73 95 Room Air Laboratory Results Abnormal lab results 04/14/23 04/14/23 Range/Units 06:32 06:32 RBC 3.65 L (4.20-5.40) M/uL Hgb 10.3 L (12.0-16.0) g/dl Hct 32.0 L (37.0-47.0) % RDW Std Deviation 47.3 H (36.4-46.3) fL RDW Coeff of Elijah 14.6 H (11.5-14.5) % BUN 25 H (6-23) mg/dl BUN/Creatinine Ratio 35.7 H (10-20) Glucose 105 H (70-99(Fasting)) mg/dl Calcium 8.5 L (8.6-10.3) mg/dl
[2022-06-22] MEDS: HYDROmorphone INJ 1 MG/ML SYRINGE IV PRN ×2 (21:14→22:34)
[2022-06-22] MEDS: DOCUSATE SODIUM/SENNA 50/8.6MG TAB PO SCH (21:15)
[2022-06-22] MEDS: ROSUVASTATIN CALCIUM 20 MG TAB PO SCH (21:15)
[2022-06-22] MEDS: VENLAFAXINE HCL XR 150 MG CAPXR PO SCH (21:16)
[2022-06-22] MEDS: rOPINIRole HCL 0.25 MG TABLET PO SCH (21:17)
[2022-06-23] MEDS: POLYETHYLENE (MIRALAX) 17 GM PACK PO SCH ×4 (05:34→23:15)
[2022-06-23] MEDS: oxyCODONE HCL IR 5 MG TAB (IMMEDIATE RELEASE) PO PRN ×3 (06:47→18:11)
[2022-06-23] MEDS: CETIRIZINE HCL 10 MG TABLET PO SCH (09:06)
[2022-06-23] MEDS: GABAPENTIN 300 MG CAP PO SCH ×2 (09:06→20:01)
[2022-06-23] MEDS: ASPIRIN 81 MG ECTAB PO SCH (09:06)
[2022-06-23] MEDS: VALSARTAN 80 MG TAB PO SCH (09:06)
[2022-06-23] MEDS: SULFAMETHOXAZOLE/TRIMETHOPRIM DS 800/160MG TAB PO SCH ×2 (09:06→20:01)
[2022-06-23] MEDS: MONTELUKAST SODIUM 10 MG TABLET PO SCH (09:06)
[2022-06-23] MEDS: PANTOprazole 40 MG TAB PO SCH (09:07)
[2022-06-23] MEDS: MULTIVITAMIN TAB PO SCH (09:07)
[2022-06-23] MEDS: dexAMETHasone 6 MG in SYRINGE 0 ML IV SCH (09:07)
[2022-06-23] MEDS: FLUTICASONE FUROATE 200MCG 14 PUFFS/INHALER INH SCH (09:08)
[2022-06-23] MEDS: UMECLIDINIUM/VILANTEROL 62.5/25MCG 7 PUFFS/INHALER INH SCH (09:08)
--- NOTE | 2022-06-23 10:49 | Orthopedic Progress Note ---
Date of Service June 23, 2022 Assessment & Plan (1) Neurogenic claudication due to lumbar spinal stenosis: Plan: Mya is postoperative day 3 status post T11-L2 decompression and instrumented fusion. She is doing well. We will continue with physical therapy today. Maintain LUIS drain. Continue with aggressive bowel regimen. DVT prophylaxis is in the form of teds and SCDs. Anticipate discharge to home tomorrow and possible DC of LUIS drain if drainage continues to decrease. Admission and Anticipated Discharge Date Admission Date: June 20, 2022 Subjective Postop day 3 Patient currently lying in bed asleep. Easily arousable. She states she is fairly sore today in the operative area. No other complaints. Denies shortness of breath, chest pain, lightheadedness. She states that prior to surgery she had some numbness and tingling going down the lower extremity however this seems to be resolving nicely. Physical Exam Physical Exam: Dressings are clean, dry, and intact. LUIS drain amount was 40 cc from the previous shift. However at this time after being up and ambulating, she has another 50 cc collected already. Calf soft nontender bilateral lower extremity Neurovascular intact. No gross motor or sensory loss seen at this time Results & Data Vital Signs (Past 12 Hours) Vital Signs Temp Pulse Resp BP Pulse Ox O2 Del Method 06/23/22 07:48 36.8 C 75 16 121/85 96 Room Air 06/22/22 23:00 CPAP
[2022-06-23 14:57] LABS: Hematocrit (blood only) 34.4 % (37.0-47.0); Hemoglobin 11.1 g/dl (12.0-16.0); Mean Corpuscular Hemoglobin 28.2 pg (25.0-34.0); Mean Corpuscular Hgb Conc 32.3 g/dL (32.0-36.0); Mean Corpuscular Volume 87.3 fL (80.0-100.0); Mean Platelet Volume 11.6 fL (9.4-12.4); Platelet Count 224 K/uL (130-400); RDW Coefficient of Variation 14.6 % (11.5-14.5); Red Blood Count 3.94 M/uL (4.20-5.40); White Blood Count 9.77 K/ul (4.8-10.8)
--- NOTE | 2022-06-23 16:24 | Hospitalist Progress Note ---
Date of Service June 23, 2022 Assessment & Plan (1) S/P spinal surgery: (2) Neurogenic claudication due to lumbar spinal stenosis: Plan: S/P T11-L2 decompression and fusion by Dr Gamino Post op day# 3 EBL #350 mL Pain management per ortho Post op anemia likely due to acute blood loss and dilutional from IVF Preop Hgb: 12.7 on 06/06/2022 per chart review Hb is improved at 11.1 today compared to 10.3 yesterday (3) Asthma: Plan: Continue home inhalers, Singulair, albuterol as needed (4) Hypertension: Plan: Continue valsartan (5) Hyperlipidemia: Plan: Continue rosuvastatin (6) GERD (gastroesophageal reflux disease): Plan: Continue PPI (7) Sleep apnea: Plan: CPAP at bedtime (8) Restless leg syndrome: Plan: Continue ropinirole (9) Anxiety and depression: Plan: Continue venlafaxine Preop urine culture grew Klebsiella Patient denied any urinary symptom. Hence asymptomatic bacteruria Currently on bactrim. Will complete treatment considering recent surgery DVT Prophylaxis SCDs per ortho Disposition per primary service Follows with Dr Elizabeth Donnelly [facility] for routine care I spent a total of 35 minutes coordinating, documenting and providing care for this patient excluding time spent in performance of separately billed services Admission and Anticipated Discharge Date Admission Date: June 20, 2022 Subjective Patient seen and examined Reports surgical site pain is controlled Has had bowel movement Denied any other symptoms Physical Exam Constitutional: + well hydrated and + obese; no acute distress Eyes: PERRL, conjunctivae normal, anicteric sclerae ENMT: external ear and nose normal, oropharynx normal Respiratory: normal respiratory effort, lungs clear to auscultation Cardiovascular: Rate/Rhythm: regular rate and regular rhythm S1 S2 Gastrointestinal (Abdomen): normal bowel sounds, soft, nontender, no hepatosplenomegaly Musculoskeletal: no cyanosis or clubbing, extremities motor strength 5/5 Clean dressing over back with drain in situ Neurologic: PERRL, EOMI, accommodation nl, no face palsy, no dysarthria Psychiatric: A+Ox3, euthymic affect Results & Data Results & Data Vital Signs (Past 12 Hours) Vital Signs Temp Pulse Resp BP BP Pulse Ox O2 Del Method 06/23/22 14:49 36.6 C 76 17 137/78 94 Room Air 06/23/22 08:00 Room Air 06/23/22 07:48 36.8 C 75 16 121/85 96 Room Air Laboratory Results Abnormal lab results 06/23/22 Range/Units 14:40 RBC 3.94 L (4.20-5.40) M/uL Hgb 11.1 L (12.0-16.0) g/dl Hct 34.4 L (37.0-47.0) % RDW Std Deviation 47.0 H (36.4-46.3) fL RDW Coeff of Elijah 14.6 H (11.5-14.5) %
[2022-06-23] MEDS: HYDROmorphone INJ 1 MG/ML SYRINGE IV PRN ×2 (20:01→23:15)
[2022-06-23] MEDS: VENLAFAXINE HCL XR 150 MG CAPXR PO SCH (20:01)
[2022-06-23] MEDS: ROSUVASTATIN CALCIUM 20 MG TAB PO SCH (20:01)
[2022-06-23] MEDS: DOCUSATE SODIUM/SENNA 50/8.6MG TAB PO SCH (20:01)
[2022-06-23] MEDS: rOPINIRole HCL 0.25 MG TABLET PO SCH (20:01)
[2022-06-24] MEDS: HYDROmorphone INJ 1 MG/ML SYRINGE IV PRN (04:11)
[2022-06-24] MEDS: POLYETHYLENE (MIRALAX) 17 GM PACK PO SCH ×2 (05:54→11:41)
[2022-06-24] MEDS: oxyCODONE HCL IR 5 MG TAB (IMMEDIATE RELEASE) PO PRN ×2 (07:52→11:56)
--- NOTE | 2022-06-24 09:19 | Orthopedic Progress Note ---
Date of Service June 24, 2022 Assessment & Plan (1) Neurogenic claudication due to lumbar spinal stenosis: Plan: Mya is postoperative day 4 status post T11-L2 decompression and instrumented fusion. She is doing well. Maintain LUIS drain. With increase of drainage after initial output this AM, we will keep the drain in and have removed at the office. Continue with aggressive bowel regimen. DVT prophylaxis is in the form of teds and SCDs. Plan for DC to home today. Admission and Anticipated Discharge Date Admission Date: June 20, 2022 Subjective POD 4 Pt sitting up at bedside finishing her breakfast. Feeling well. No new complaints. States that the tingling in her toes continues to resolve. Physical Exam Physical Exam: Dressings C/D/I. Calves soft, NT. NV intact with noted mild residual decreased sensation that is improving daily. LUIS drainage was emptied for 15cc this AM but now has approximately 60cc after sitting up at bedside and going to BR. Results & Data Vital Signs (Past 12 Hours) Vital Signs Temp Pulse Resp BP Pulse Ox O2 Del Method 06/24/22 08:00 Room Air 06/24/22 07:47 36.6 C 68 17 149/93 H 97 Room Air 06/23/22 22:38 36.4 C L 70 16 130/79 95 Room Air
[2022-06-24] MEDS: PANTOprazole 40 MG TAB PO SCH (09:20)
[2022-06-24] MEDS: VALSARTAN 80 MG TAB PO SCH (09:21)
[2022-06-24] MEDS: UMECLIDINIUM/VILANTEROL 62.5/25MCG 7 PUFFS/INHALER INH SCH (09:21)
[2022-06-24] MEDS: GABAPENTIN 300 MG CAP PO SCH (09:21)
[2022-06-24] MEDS: FLUTICASONE FUROATE 200MCG 14 PUFFS/INHALER INH SCH (09:21)
[2022-06-24] MEDS: MONTELUKAST SODIUM 10 MG TABLET PO SCH (09:21)
[2022-06-24] MEDS: MULTIVITAMIN TAB PO SCH (09:21)
[2022-06-24] MEDS: CETIRIZINE HCL 10 MG TABLET PO SCH (09:21)
[2022-06-24] MEDS: ASPIRIN 81 MG ECTAB PO SCH (09:21)
--- NOTE | 2022-06-24 11:48 | Hospitalist Progress Note ---
Date of Service June 24, 2022 Assessment & Plan (1) S/P spinal surgery: (2) Neurogenic claudication due to lumbar spinal stenosis: Plan: S/P T11-L2 decompression and fusion by Dr Gamino Post op day# 4 EBL #350 mL Pain management per ortho Post op anemia likely due to acute blood loss and dilutional from IVF Preop Hgb: 12.7 on 06/06/2022 per chart review Hb is improved to 11.1 from jose of 10.3 (3) Asthma: Plan: Continue home inhalers, Singulair, albuterol as needed (4) Hypertension: Plan: Continue valsartan (5) Hyperlipidemia: Plan: Continue rosuvastatin (6) GERD (gastroesophageal reflux disease): Plan: Continue PPI (7) Sleep apnea: Plan: CPAP at bedtime (8) Restless leg syndrome: Plan: Continue ropinirole (9) Anxiety and depression: Plan: Continue venlafaxine Preop urine culture grew Klebsiella Patient denied any urinary symptom. Hence asymptomatic bacteruria Treated with bactrim inpatient Stable for DC per Primary Surgical team I spent a total of 30 minutes coordinating, documenting and providing care for this patient excluding time spent in performance of separately billed services Admission and Anticipated Discharge Date Admission Date: June 20, 2022 Subjective Patient seen and examined Reports surgical site pain is controlled Physical Exam Constitutional: + well hydrated and + obese; no acute distress Eyes: PERRL, conjunctivae normal, anicteric sclerae ENMT: external ear and nose normal, oropharynx normal Respiratory: normal respiratory effort, lungs clear to auscultation Cardiovascular: Rate/Rhythm: regular rate and regular rhythm S1 S2 Gastrointestinal (Abdomen): normal bowel sounds, soft, nontender, no hepatosplenomegaly Musculoskeletal: no cyanosis or clubbing, extremities motor strength 5/5 Clean dressing with LUIS drain in situ Neurologic: PERRL, EOMI, accommodation nl, no face palsy, no dysarthria Psychiatric: A+Ox3, euthymic affect Results & Data Results & Data Vital Signs (Past 12 Hours) Vital Signs Temp Pulse Resp BP Pulse Ox O2 Del Method 06/24/22 08:00 Room Air 06/24/22 07:47 36.6 C 68 17 149/93 H 97 Room Air
--- NOTE | 2022-06-27 09:12 | Discharge Summary ---
Date of Service June 27, 2022 Admission HPI Per Admitting Provider This is a 59-year-old female who presents with chronic persistent back and bilateral leg pain after failing course of nonoperative care she is here for surgical invention. Admission Exam (Per Admitting) Constitutional well developed Eyes PERRL, conjunctivae normal, anicteric sclerae ENMT external ear and nose normal, oropharynx normal Neck normal visual inspection Respiratory normal respiratory effort Cardiovascular Extremities: normal capillary refill Gastrointestinal (Abdomen) Inspection/Auscultation: abdomen normal to inspection Musculoskeletal Spine: + pain with thoraco-lumbar ROM Extremities: extremities normal to inspection and strength 5/5 throughout Skin no rashes, warm and dry Neurologic normal touch/pain/proprioception and moves all extremities Psychiatric A+Ox3, euthymic affect Eye Contact: good eye contact Discharge Data Consultations 06/20/22 14:14 Consult Hospitalist Routine Procedures Performed Operation Date: 06/20/22 10:05 Actual Procedures p T11-L2 Decompression and Fusion, Spinal Cord Monitoring(Not Applicable) - Maged Gamino, Hospital Course (1) Neurogenic claudication due to lumbar spinal stenosis: Mya was discharged home on postoperative day 3 status post thoracolumbar decompression and fusion Dr. Gamino. She had an uneventful hospital course. Made great progress in physical therapy. Pain was controlled. Lab values stable. Discharge Instructions ACTIVITY RECOMMENDATIONS: SELF CARE INSTRUCTIONS AFTER THORACIC/LUMBAR FUSIONS 1. You may walk to your tolerance. It is good exercise for your legs and back. Expect some back and intermittent leg aches and pains. 2. You may perform "counter-top" level activities (make a sandwich, fab with a project, etc.). 3. No bending or lifting of more than 10 pounds or back twisting of any nature (roll like a log when turning in bed). 4. You may ride in a car for 20-30 minutes at a time. No driving until after your first visit with your doctor. 5. Frequent changes of position and restricting sitting to 30 minutes at a time will help limit the amount of back spasms and stiffness you may experience. 6. You may discontinue the use of ambulatory aids (cane, crutches, etc.) once your strength and confidence allow. 7. You may insulation helper the shower and let water strike your incision when you arrive home at least once daily. Do not take a tub bath, sit in a hot tub or go into a swimming pool until after your first recheck in the office. SPECIAL CARE INSTRUCTIONS: VERY IMPORTANT TO READ AND REVIEW A. Your surgical incision has been closed with a cosmetic suture under the skin that will dissolve in about 6 weeks. In 14 days, you can use a pair of clean scissors and cut the suture that is left outside of the skin at the ends of your incision. 1. The small skin tapes can be removed 7 days after surgery if they have not fallen off by that point. 2. You may keep the wound open to air as much as possible to promote healing after post-op day number 5 unless told otherwise by your doctor. 3. If you think the wound looks like it is becoming infected (redness or worsening drainage) and/or you are experiencing fever, chill or worsening back pain and muscle spasms, contact the office so that we may evaluate you as soon as possible. B. Complications are uncommon, but please contact us if you have any signs or symptoms of: 1. wound infection (fever higher than 102.5 degrees F, redness, separation of wound, drainage, or increasing pain from the incision) 2. blood clots in legs (pain, swelling, redness and warmth in legs) 3. urinary tract infection (fever higher than 102.5 degrees F, burning upon urination or increased frequency of urination) 4. nerve problems (inability to walk on your toes or heels, numbness, loss of bowel or bladder control) 5. any other symptoms that concern you C. Please call the office at if you have any concerns or questions about your operation or recovery. D. No smoking! Smoking drastically decreases the chance of a solid fusion. E. Do not take any anti-inflammatory medications (Indocin, Advil, Motrin, Aspirin, Naprosyn, etc.) as these may inhibit the chance of a solid fusion. Tylenol is okay to take for pain. MANAGING PAIN AFTER SPINAL SURGERY 1. Narcotic medication is intended for short-term use and will be provided for surgical pain. Surgical pain usually lasts for a period of 4-6 weeks. Narcotic medication includes Percocet, Vicodin, Darvocet, Tylenol #3 or Lortab. 2. Longer-term pain is more appropriately treated with non-narcotic medication such as Tylenol ES. 3. Muscle spasm is not appropriately treated with narcotics. Muscle relaxers such as Soma, Flexeril or Skelaxin can be used along with Tylenol ES. 4. Remember that we all live with some "aches and pains". This is not unusual or uncommon after an injury or as we get older. a. Back pain is expected and may include muscle spasms for 4 to 6 weeks after surgery. The pain should gradually improve. If the pain worsens for no apparent reason, please contact the office. b. Intermittent leg pain may also be experienced and should not be concerned about unless it worsens for no apparent reason. If so, please contact the office. 5. We will provide appropriate medication within the normal guidelines of their prescribed use. We will also be very cautious and aware of potential abuse and extended duration of patients' medication needs. a. Pain medications are for your comfort and to assist with sleep and rest so that the tissue can heal. They are not provided in order to return to normal activity and should not be used through the day. To do so or worsening pain at night can result from ongoing tissue damage and development of tolerance to the prescribed medicine. 6. Please allow 2-3 days to process refills. Prescriptions will not be mailed but must be picked up at the office. FOLLOW UP VISIT: Keep your scheduled follow-up appointment. Any questions, please call the office at .
== END 2022-06-24 12:17 | disposition home or self-care (01) | DRG 454 ==
LOC: ASU 08:36 → 3N 12:23